=== PATIENT | female | born 2000 | race African-American/Black ===

== ENCOUNTER 2021-07-01 12:25 | Emergency (ER) | payer MEDICAID ==
[~2021-07-01] VITALS: Ht 180.3 cm; Wt 77.0 kg
[2021-07-01] MEDS ORDERED: IBUPROFEN 600MG TABLET PO ONE (14:15)
[2021-07-01] MEDS ORDERED: CLIN75GE4 TP (14:17)
[2021-07-01] MEDS ORDERED: CLIN300C12 MT (14:17)
[2021-07-01] MEDS ORDERED: LACT1CAP63 MT (14:17)
[2021-07-01] MEDS ORDERED: IBUP-2029 MT (14:17)
[2021-07-01 14:35] VITALS: BP 114/78
== END 2021-07-01 14:37 | disposition home or self-care (01) ==
LOC: ER 12:25
DX: L02.411 Cutaneous abscess of right axilla (principal); L73.2 Hidradenitis suppurativa; K08.89 Other specified disorders of teeth and supporting structures; Z88.0 Allergy status to penicillin
CPT/HCPCS: 99283

== ENCOUNTER 2024-12-30 11:43 | Emergency (ER) | payer BC, MEDICAID ==
[~2024-12-30] VITALS: Ht 180.3 cm; Wt 113.5 kg
[~2024-12-30 11:43] MED LIST: CLIN-194 MT; CLIN75GE4 TP; IBUP-1455 MT; LACT1CAP63 MT
[2024-12-30 12:24] VITALS: O2SAT 98
[2024-12-30 13:43] LABS: BASOPHILS % 1.2 % (0.0-2.0); EOSINOPHILS % 1.3 % (0.0-5.0); HEMATOCRIT. 36.3 % (36.0-48.0); HEMOGLOBIN. 11.6 g/dL (12.0-16.0); LYMPHOCYTES % 38.2 % (20.0-50.0); MEAN PLATELET VOLUME 8.6 fl (7.4-10.4); MONOCYTES % 5.6 % (2.0-8.0); NEUTROPHILS % 53.7 % (40.0-76.0); PLATELET 276 x1000/uL (130-400); RED BLOOD CELL COUNT 4.24 mill/uL (4.2-5.4); RED CELL DISTRIBUTION WIDTH 15.3 % (11.6-14.6)
[2024-12-30 13:55] LABS: INR 1.0
[2024-12-30 13:58] LABS: HCG SCREEN NEGATIVE
[2024-12-30 13:59] LABS: CREATININE 0.9 mg/dL (0.6-1.0); TRIGLYCERIDE 68 mg/dL (0-150); UREA NITROGEN BLOOD 10 mg/dL (9-23)
[2024-12-30 14:00] LABS: ASPARTATE AMINOTRANSFERASE 15 IU/L (<34); LDL CHOLESTEROL 136 mg/dL (5-100)
[2024-12-30 14:01] LABS: BILIRUBIN DIRECT < 0.1 mg/dL (<=3.0); BILIRUBIN TOTAL 0.3 mg/dL (0.1-1.0); PROTEIN TOTAL 7.3 g/dL (6.0-8.3)
[2024-12-30 14:02] LABS: B-HCG QUANTITATIVE < 1 mIU/mL (<6); T4 FREE 0.93 ng/dL (0.89-1.76)
[2024-12-30 14:21] LABS: CLARITY URINE CLEAR (CLEAR); COLOR URINE YELLOW (YELLOW); GLUCOSE URINE NEGATIVE (NEGATIVE); KETONES URINE TRACE (NEGATIVE); LEUKOCYTE ESTERASE URINE NEGATIVE (NEGATIVE); NITRITE URINE NEGATIVE (NEGATIVE); OCCULT BLOOD URINE TRACE (NEGATIVE); PH URINE 6.0 (4.5-8.0); PROTEIN URINE NEGATIVE (NEGATIVE); SPECIFIC GRAVITY URINE 1.024 (1.005-1.030); UROBILINOGEN URINE 0.2 E.U./dL (0.2-1.0)
[2024-12-30 14:38] LABS: BACTERIA URINE 1+; SQUAMOUS EPITHELIAL CELL URINE 1+ /lpf (RARE/1+)
[2024-12-30 14:39] LABS: RBC URINE NONE SEEN /hpf (0-2); WBC URINE NONE SEEN /hpf (0-2)
[2024-12-30 16:09] VITALS: BP 122/72; PULSE 81; RESP 14; TEMP 36.5; O2SAT 100
== END 2024-12-30 16:10 | disposition home or self-care (01) ==
LOC: ER 11:43
DX: R10.20 Pelvic and perineal pain unspecified side (principal); Z88.0 Allergy status to penicillin; Z79.899 Other long term (current) drug therapy
CPT/HCPCS: 36415; 76830; 76856; 80048; 80061; 80076; 81003; 81025; 83735; 84439; 84443; 84702; 84703; 85025; 99284